=== PATIENT | female | born 1960 | race Caucasian/White ===

== ENCOUNTER 2020-03-06 17:07 | Emergency (ER) | payer OTHER, BC, SELFPAY ==
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
[2020-03-06 17:15] VITALS: BP 132/96; PULSE 90; RESP 16; TEMP 36.6; O2SAT 99
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
[2020-03-06 20:33] VITALS: BP 138/90; PULSE 62; RESP 16; TEMP 36.6; O2SAT 97
== END 2020-03-06 20:34 | disposition home or self-care (01) ==
PROVIDERS: Emergency Provider Emergency Medicine
DX: S61.011A Laceration without foreign body of right thumb without damage to nail, initial encounter (principal); E03.9 Hypothyroidism, unspecified; X58.XXXA Exposure to other specified factors, initial encounter
CPT/HCPCS: 12002; 73130; 99283; A9270